=== PATIENT | female | born 1980 | race Hispanic/Latino ===

== ENCOUNTER 2023-05-02 10:29 | Observation (INO) | payer SELFPAY ==
[2023-05-02 11:06] LABS: #Monocytes 0.9 thou/uL (0.11-0.59); #Neutrophils 11.7 thou/uL (1.40-6.50); %Basophils 0.3 % (0.0-1.0); %Eosinophils 0.1 % (0.0-10.0); %Lymphocytes 7.5 % (21.0-51.0); %Monocytes 6.4 % (0.0-10.0); %Neutrophils 85.2 % (42.0-75.0); Hemoglobin 10.2 g/dL (12.0-16.0); Mean Corpuscular HGB CONC 31.1 g/dL (32.0-36.0); Mean Corpuscular Hemoglobin 24.8 pg (27.0-31.0); Mean Corpuscular Volume 79.6 fl (78.0-98.0); Mean Platelet Volume 9.2 fL (7.4-10.4); Platelet Count 346 10x3/uL (130-400); RBC Distribution Width 17.3 % (11.5-14.5); Red Blood Cell (RBC) Count 4.12 mill/uL (4.20-5.40); White Blood Cell (WBC) Count 13.7 10x3/uL (4.8-10.8)
[2023-05-02 11:11] LABS: Bacteria/HPF 1+ HPF (None Seen); Bilirubin Negative (Negative); Blood, Urine Negative (Negative); CAUTI Indications for Culture Pelvic or flank pain; Clarity Clear (Clear); Glucose, Urine (Dipstick) Normal (Negative); Ketone, Urine 20 mg/dL (Negative); Leukocyte 75 Leu/uL (Negative); Nitrite Negative (Negative); Protein, Urine (Dipstick) Negative (Neg-Trace); RBC/HPF 0-3 HPF (0-3); Specific Gravity, Urine 1.014 (1.002-1.036); Urobilinogen Normal mg/dL (Less than 2); WBC/HPF 0-3 HPF (0-3); pH, Urine 6.5 (5.0-9.0)
[2023-05-02 11:13] LABS: Urine Culture Reflex No No
[2023-05-02 11:28] LABS: ALT (SGPT) 39 U/L (8-55); AST (SGOT) 43 U/L (5-34); Albumin 4.4 g/dL (3.5-5.0); Alkaline Phosphatase 72 U/L (40-110); Anion Gap 15 mmol/L (10-20); BUN (Urea Nitrogen) 8 mg/dL (7.0-18.7); Bilirubin, Total 0.6 mg/dL (0.2-1.2); Calc. Creatinine Clearance 0 mL/min (70-130); Calcium 9.4 mg/dL (7.8-10.44); Carbon Dioxide 22 mmol/L (22-29); Chloride 104 mmol/L (98-107); Estimated GFR 97; Globulin 3.2 g/dL (2.4-3.5); Glucose 126 mg/dL (70-105); Protein, Total 7.6 g/dL (6.0-8.3); Sodium 137 mmol/L (136-145)
[2023-05-02] MEDS ORDERED: Lidocaine Viscous Sol 2% 15 ml UD Cup ONE (14:15)
[2023-05-02] MEDS ORDERED: Mag-Al 1200 mg/1200 mg/30 ML UDCUP ONE (14:15)
[2023-05-02 14:16] LABS: Pregnancy Test - Urine (BHCG) Negative (Negative); Pregu Control Background? CLEAR/WHITE (CLR/WHITE); Pregu Control Bar Appear? YES (CONTROL BAR); Specific Gravity 1.014 (1.002-1.036)
[2023-05-02 14:36] LABS: Troponin I Less than 0.010 ng/mL (< 0.028)
[2023-05-02] MEDS ORDERED: Morphine 4 MG/ML VIAL ONE (14:58)
[2023-05-02] MEDS ORDERED: Ondansetron PF 4 MG/2 ML Vial ONE (14:58)
[2023-05-02] MEDS ORDERED: Piperacillin/Tazobactam 4.5 GM VIAL ONE (14:58)
[2023-05-02] MEDS ORDERED: Ondansetron ODT 4 MG TAB PO PRN (16:50)
[2023-05-02] MEDS ORDERED: Dextrose 5% in Water 1,000 ML IV PRN (16:50)
[2023-05-02] MEDS ORDERED: TETANUS, DIPHTHERIA TOX,ADULT (TDVAX) 0.5 ML VIAL IM ONE (16:50)
[2023-05-02] MEDS ORDERED: Dextrose 50% Abboject 50 ML SYRINGE SLOW IVP PRN (16:50)
[2023-05-02] MEDS ORDERED: Ondansetron PF 4 MG/2 ML Vial IVP PRN (16:50)
[2023-05-02] MEDS ORDERED: Morphine 2 MG/ML VIAL SLOW IVP PRN (16:50)
[2023-05-02] MEDS ORDERED: Promethazine HCl 25 MG/ML VIAL IM PRN (16:50)
[2023-05-02] MEDS ORDERED: Glucagon 1 MG/ML KIT IM PRN (16:50)
[2023-05-02] MEDS ORDERED: traMADol HCl 50 MG TAB PO PRN (16:52)
[2023-05-02] MEDS: traMADol HCl 50 MG TAB PO SCH ×2 (17:50→22:36)
[2023-05-02] MEDS: Acetaminophen 325 MG TAB PO SCH ×2 (17:51→22:31)
[2023-05-02 17:58] VITALS: BMI 27.5
[2023-05-02] MEDS: Piperacillin/Tazobactam 3.375 GM in Sodium Chloride 0.9% 100 ML IVPB SCH (20:16)
[2023-05-02] MEDS: Famotidine 20 MG TAB PO SCH (20:16)
[2023-05-02] MEDS ORDERED: Piperacillin/Tazobactam 4.5 GM in Sodium Chloride 0.9% 100 ML IVPB SCH (22:00)
[2023-05-03] MEDS: Sodium Chloride 0.9% 1,000 ML IV SCH ×2 (00:42→09:57)
[2023-05-03] MEDS: Piperacillin/Tazobactam 3.375 GM in Sodium Chloride 0.9% 100 ML IVPB SCH ×2 (04:20→14:00)
[2023-05-03] MEDS: traMADol HCl 50 MG TAB PO SCH ×3 (04:22→17:52)
[2023-05-03] MEDS: Acetaminophen 325 MG TAB PO SCH ×3 (04:23→17:53)
[2023-05-03] MEDS ORDERED: Sevoflurane 250 ML INH ANEST BOTTLE ONE (05:40)
[2023-05-03] MEDS ORDERED: fentaNYL 50 mcg/mL 1 mL Vial ONE (08:14)
[2023-05-03] MEDS ORDERED: fentaNYL PF 100 MCG/2 ML SYRINGE ONE ×2 (08:14→11:44)
[2023-05-03] MEDS ORDERED: Ketamine 50 MG/ML (10ML VIAL) ONE (08:15)
[2023-05-03] MEDS ORDERED: Bupivacaine HCl 0.5%/Epinephrine 1:200,000/PF 30 ml Vial ONE (08:22)
[2023-05-03] MEDS ORDERED: Iopamidol 15 ML ONE ×2 (08:22→08:29)
[2023-05-03] MEDS ORDERED: Midazolam HCl 2 mg/ml Syrup 5 ml UD Cup ONE (09:18)
[2023-05-03] MEDS ORDERED: Midazolam HCl 2 mg/2 ml Vial ONE (09:19)
[2023-05-03] MEDS ORDERED: SUGAMMADEX SODIUM 200 MG/2 ML VIAL ONE (09:21)
[2023-05-03] MEDS ORDERED: Rocuronium Bromide 10 MG/ML (10ML VIAL) ONE (09:28)
[2023-05-03] MEDS ORDERED: PHENYLEPHRINE-NS 100 MCG/ML 10 ML SYRINGE ONE (09:28)
[2023-05-03] MEDS ORDERED: Ketorolac Tromethamine 30 MG/ML VIAL ONE (09:28)
[2023-05-03] MEDS ORDERED: Ondansetron PF 4 MG/2 ML Vial ONE (09:28)
[2023-05-03] MEDS ORDERED: PROPOFOL 200 MG/20 ML VIAL ONE (09:28)
[2023-05-03] MEDS ORDERED: Dexamethasone 20 MG/5 ML VIAL ONE (09:28)
[2023-05-03] MEDS ORDERED: ePHEDrine Sulfate 50 MG/10 ML VIAL ONE (09:28)
[2023-05-03] MEDS: Famotidine 20 MG TAB PO SCH (09:57)
[2023-05-03] MEDS ORDERED: Meperidine HCl/PF 25 MG/ML VIAL SLOW IVP PRN (11:49)
[2023-05-03] MEDS ORDERED: Ondansetron HCl/PF 4 MG/2 ML Vial IVP PRN (11:49)
[2023-05-03] MEDS ORDERED: Promethazine HCl 25 MG/ML VIAL IM PRN (11:49)
[2023-05-03] MEDS ORDERED: PACU-Morphine 4MG/ML VIAL SLOW IVP PRN (11:49)
[2023-05-03 19:40] VITALS: BP 111/73; TEMP 99.1
== END 2023-05-03 19:40 | disposition home or self-care (01) ==
LOC: ERS 10:29 → SURG A 15:53
PROVIDERS: ADMIT Surgery; ATTEND Surgery
PROC: 0FT44ZZ Resection of Gallbladder, Percutaneous Endoscopic Approach (ICD-10-PCS; principal; 2023-05-02)
PROC: BF10YZZ Fluoroscopy of Bile Ducts using Other Contrast (ICD-10-PCS; 2023-05-02)
DX: K80.12 Calculus of gallbladder with acute and chronic cholecystitis without obstruction (principal); K29.50 Unspecified chronic gastritis without bleeding; D72.829 Elevated white blood cell count, unspecified; F17.200 Nicotine dependence, unspecified, uncomplicated
CPT/HCPCS: 36415; 47532; 71045; 76705; 80053; 81001; 81025; 83605; 83690; 84484; 85025; 88304; 90714; 93005; 96361; 96365; 96366; 96375; 96376; C1889; G0378; J1100; J1885; J2250; J2270; J2272; J2405; J2543; J2704; J3010; J3490; J7050; Q9967